=== PATIENT | male | born 1995 | race African-American/Black ===

== ENCOUNTER 2016-08-22 12:54 | Emergency (ER) | payer MEDICAID, OTHER ==
[~2016-08-22] VITALS: Ht 185.4 cm; Wt 108.9 kg
[2016-08-22 14:57] VITALS: BP 163/98
== END 2016-08-22 15:27 | disposition home or self-care (01) ==
LOC: ER 12:54
DX: S93.402A Sprain of unspecified ligament of left ankle, initial encounter (principal); X58.XXXA Exposure to other specified factors, initial encounter; Y93.67 Activity, basketball; Y99.8 Other external cause status; Y92.89 Other specified places as the place of occurrence of the external cause
CPT/HCPCS: 73610

== ENCOUNTER 2018-05-21 15:58 | Emergency (ER) | payer SELFPAY ==
[~2018-05-21] VITALS: Ht 188 cm; Wt 116.6 kg
[2018-05-21 16:56] VITALS: BP 147/78
[2018-05-21] MEDS ORDERED: HYDROcodone-ACET 5/325MG TAB PO ONE (17:00)
[2018-05-21] MEDS ORDERED: KETOROLAC TROMETH 60MG/2ML VIAL IM ONE (17:00)
== END 2018-05-21 18:06 | disposition home or self-care (01) ==
LOC: ER 15:58 → MERGE 15:58 → ER 18:06
DX: M25.562 Pain in left knee (principal); Z87.828 Personal history of other (healed) physical injury and trauma
CPT/HCPCS: 73700; 96372; 99284; J1885

== ENCOUNTER 2019-02-11 15:14 | Emergency (ER) | payer MEDICAID ==
[~2019-02-11] VITALS: Ht 188 cm; Wt 113.4 kg
[2019-02-11 16:02] LABS: Urine Bacteria FEW /hpf (None Seen); Urine Blood Negative /uL (Negative); Urine Specific Gravity 1.022 (1.001-1.035); Urine WBC 11 /hpf (0 - 3)
[2019-02-11 16:30] VITALS: BP 144/97
[2019-02-11 16:40] LABS: Basophils # (auto) 0.1 uL; Basophils % (auto) 0.8 % (0.0-2.0); Eosinophils # (auto) 0 uL; Eosinophils % (auto) 0.3 % (0.0-7.0); Hematocrit 47.4 % (41.0-53.0); Hemoglobin 16.2 g/dL (13.5-17.5); Lymphocytes # (auto) 1.6 uL; Lymphocytes % (auto) 24.2 % (10.0-50.0); Mean Corpuscular Hemoglobin 27.9 pg (28.0-32.0); Mean Corpuscular Hgb Conc. 34.2 g/dL (32.0-36.0); Mean Corpuscular Volume 81.7 fL (80.0-100.0); Monocytes # (auto) 0.5 uL; Monocytes % (auto) 7.7 % (0.0-12.0); Neutrophils # (auto) 4.5 uL; Nucleated Red Blood Cells % 0.1 %; Platelet Count (auto) 228 10^3/uL (140-450); Red Blood Cells 5.81 10^6/uL (4.5-5.90); White Blood Cell 6.7 10^3/uL (4.4-10.8)
== END 2019-02-11 17:08 | disposition home or self-care (01) ==
LOC: ER 15:18
DX: M54.5 Low back pain (principal); N39.0 Urinary tract infection, site not specified
CPT/HCPCS: 36415; 74176; 81001; 85025

== ENCOUNTER 2019-02-24 20:07 | Emergency (ER) | payer MEDICAID ==
[~2019-02-24] VITALS: Ht 188 cm; Wt 117.9 kg
[2019-02-24 20:38] LABS: Urine Bacteria NONE SEEN /hpf (None Seen); Urine Blood 2+ /uL (Negative); Urine Mucus FEW (None Seen); Urine Specific Gravity 1.017 (1.001-1.035); Urine WBC 8 /hpf (0 - 3)
[2019-02-24] MEDS ORDERED: LIDOCAINE 1% HCL (LOCAL ANESTH.) INJ 20ML MDV ONE (22:43)
[2019-02-24] MEDS ORDERED: cefTRIAXone SOD 1,000 MG VL IM ONE (22:45)
[2019-02-24 23:02] VITALS: BP 137/86
== END 2019-02-24 23:17 | disposition home or self-care (01) ==
LOC: EEVIPCON 20:10 → ER 20:10
DX: N39.0 Urinary tract infection, site not specified (principal); N23 Unspecified renal colic
CPT/HCPCS: 74176; 81001; 96372; 99284; J0696; J2001